=== PATIENT | male | born 1975 | race Caucasian/White ===

== ENCOUNTER 2018-02-14 07:21 | Day surgery (SDC) | payer MEDICARE ==
[2015-07-08 18:56] VITALS: BMI 38.3
[2018-02-14 08:05] VITALS: PULSE 63; TEMP 97
[2018-02-14] MEDS ORDERED: Propofol 10 mg/ml Inj (20 ML) ONE (09:56)
[2018-02-14 11:10] VITALS: BP 115/76; RESP 18; O2SAT 100
== END 2018-02-14 11:02 | disposition home or self-care (01) ==
LOC: C.ENDO 07:21
PROVIDERS: ATTEND Internal Medicine Gastroenterology
DX: R10.13 Epigastric pain (principal); K29.70 Gastritis, unspecified, without bleeding
CPT/HCPCS: 43239; 88305; 88342; J2001; J2704; J2765